=== PATIENT | female | born 1975 | race Two or more races ===

== ENCOUNTER 2021-07-11 09:34 | Emergency (ER) | payer MEDICAID ==
[~2021-07-11] VITALS: Ht 154.9 cm; Wt 77.1 kg
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
--- NOTE | 2021-07-11 09:38 | NUR ---
DR MARTELL AT BEDSIDE FOR EVAL.
[2021-07-11] MEDS ORDERED: IBUP-1955 PO (09:41)
[2021-07-11] MEDS ORDERED: ACETAMINOPHEN ES 500 MG TABLET ONE (09:43)
[2021-07-11] MEDS ORDERED: ACETAMINOPHEN ES 500 MG TABLET PO ONE (10:00)
--- NOTE | 2021-07-11 10:30 | NUR ---
[facility] AT BEDSIDE
--- NOTE | 2021-07-11 10:37 | NUR ---
Patient discharged to home in stable condition. Written and verbal after care instructions given. Patient verbalizes understanding of instruction.
[2021-07-11 10:58] VITALS: BP 134/82
== END 2021-07-11 10:58 | disposition home or self-care (01) ==
LOC: ER 09:37
DX: S13.4XXA Sprain of ligaments of cervical spine, initial encounter (principal); V49.49XA Driver injured in collision with other motor vehicles in traffic accident, initial encounter; Y93.89 Activity, other specified; Y92.413 State road as the place of occurrence of the external cause; Y99.8 Other external cause status